=== PATIENT | male | born 1950 | race American Indian/Alaskan Native ===

== ENCOUNTER 2016-06-02 11:54 | Emergency (ER) | payer MEDICARE ==
[2016-06-02 12:03] VITALS: BP 154/99
[2016-06-02] MEDS ORDERED: NORCO 5/325 PO ONE (14:03)
[2016-06-02 14:47] LABS: Basophils % (Auto) 0.8 % (0.0-1.8); Hematocrit 43.3 % (35.5-45.6); Hemoglobin 14.5 gm/dl (11.8-15.2); Mean Corpuscular HGB Conc 33 % (32-34); Mean Corpuscular Hemoglobin 30 pg (28-32); Mean Corpuscular Volume 91 fl (84-94); Platelet Count 211 K/mm3 (140-440); Red Blood Count 4.77 M/mm3 (3.65-5.03); Red Cell Distribution Width 13.6 % (13.2-15.2); White Blood Count 9.7 K/mm3 (4.5-11.0)
[2016-06-02 14:53] LABS: Anion Gap 19 mmol/L; BUN/Creatinine Ratio 10.83; Blood Urea Nitrogen 13 mg/dL (9-20); Calcium 9.6 mg/dL (8.4-10.2); Carbon Dioxide 26 mmol/L (22-30); Chloride 101.8 mmol/L (98-107); Glucose 105 mg/dL (75-100); Potassium 4.4 mmol/L (3.6-5.0); Sodium 142 mmol/L (137-145)
--- NOTE | 2016-06-02 14:53 | XRay Report ---
Right hand 3 views: History: Swelling of hand, pain. Gout. Findings: No definite articular abnormality. No definite bony erosion. No periosteal reaction or soft tissue calcification. There is suspicion of a cystic area noted at the middle phalanx of third finger right hand probably related to old injury. There is periosteal thickening noted in the region. Impression: Findings as detailed above. Clinical correlation is advised.
--- NOTE | 2016-06-02 14:55 | XRay Report ---
Right wrist 3 views: History: Pain. Findings: There appears to be arthritic changes at the scaphocapitate joint. The area is not optimally visualized. The radio carpal joint appears unremarkable. No definite evidence of acute fracture or soft tissue calcification. Impression: Findings as detailed above.
[2016-06-02 14:56] LABS: C-Reactive Protein 0.4 mg/dL (0.00-1.30); Uric Acid 6.6 mg/dL (3.5-7.6)
[2016-06-02 15:10] LABS: Erythrocyte Sedimentation Rate 7 mm/Hr (0-20)
[2016-06-02] MEDS ORDERED: MOTRIN PO ONE (15:24)
--- NOTE | 2016-06-02 16:25 | Emergency Department Report ---
Upper Extremity - HPI Chief Complaint: Extremity Injury, Upper Stated Complaint: RT HAND NUMBNESS/PAIN/SWELLING Time Seen by Provider: 06/02/16 13:58 Upper Extremity: Right Hand Occurred When: 1 Day Symptoms: Yes Pain with Movement, Yes Swelling, No Deformity, No Limited Range of Movement, No Numbness, No Weakness, No Bruising/Ecchymosis ED Review of Systems ROS: Stated complaint: RT HAND NUMBNESS/PAIN/SWELLING Other details as noted in HPI Constitutional: denies: chills, fever Eyes: denies: eye pain, eye discharge, vision change ENT: denies: ear pain, throat pain Respiratory: denies: cough, shortness of breath, wheezing Cardiovascular: denies: chest pain, palpitations Endocrine: no symptoms reported Gastrointestinal: denies: abdominal pain, nausea, diarrhea Genitourinary: denies: urgency, dysuria Musculoskeletal: as per HPI. denies: back pain, joint swelling, arthralgia Skin: denies: rash, lesions Neurological: denies: headache, weakness, paresthesias Psychiatric: denies: anxiety, depression Hematological/Lymphatic: denies: easy bleeding, easy bruising ED Past Medical Hx - Past Medical History Hx Hypertension: Yes Hx Congestive Heart Failure: No Hx Diabetes: No Hx Asthma: No Hx COPD: No Additional medical history: SLEEP APNEA,PROSTATE CA-remission. NEUROPATHY - Surgical History Additional Surgical History: TONSILLECTOMY. PROSTATE REMOVED - Social History Smoking Status: Never Smoker Substance Use Type: Alcohol - Medications Home Medications: Home Medications Medication Instructions Recorded Confirmed Last Taken Type Colchicine [Colcrys] 0.6 mg PO DAILY #13 tablet 01/07/15 01/01/16 Unknown Rx HYDROcodone/APAP 5-325 [[place] 1 each PO Q6HR PRN #16 tablet 01/07/15 01/01/16 Unknown Rx 5-325 mg TAB] Indomethacin Sr (Nf) [Indocin Sr 75 mg PO Q12HR #30 capsule.er 01/07/15 Unknown Rx (Nf)] Prednisone [predniSONE 10 mg 10 mg PO .TAPER #1 tab.ds.pk 01/07/15 01/01/16 Unknown Rx (6-Day Pack, 21 Tabs)] amLODIPine [Norvasc] 10 mg PO DAILY 30 Days 01/03/16 Unknown Rx HYDROcodone/APAP 5-325 [[place] 1 each PO Q6HR PRN #5 tablet 06/02/16 Unknown Rx 5/325] Naproxen [Naprosyn TAB] 500 mg PO BID PRN #20 tablet 06/02/16 Unknown Rx Upper Extremity Exam - Exam General: Vital signs noted. No distress. Alert and acting appropriately. Head and Torso: No HEENT Abnormality, No Neck Tenderness, No Chest/Lungs Abnormality, No Abdominal Tenderness, No Back Tenderness Shoulder Exam: Yes Normal Range of Motion in Shoulder, No Shoulder Tenderness, No Clavicle Tenderness, No Shoulder Deformity, No AC Joint Tenderness Arm Exam: No Arm/Humerus Tenderness, No Arm Deformity Elbow: No Elbow Tenderness, No Normal Range of Motion in Elbow, No Elbow Deformity Forearm: No Forearm Tenderness, No Forearm Deformity, No Pain with Pronation, No Pain with Supination Wrist: Yes Normal ROM in Wrist, No Wrist Tenderness, No Wrist Deformity, No Snuffbox Tenderness, No Pain with Axial Thumb Compression Hand: Yes Hand Tenderness (minor tenderness on palpation middle of the hand), Yes Normal ROM in Digit(s), No Hand Deformity, No Digit Tenderness, No Digit(s) Deformity, No Tendon Dysfunction CMS Exam: No Broken Skin, No Normal Distal Pulses (distal radial pulse ulnar pulse intact), No Normal Capillary Refill, No Normal Distal Sensation ED Course Vital Signs 06/02/16 12:00 Temperature 98.3 F Pulse Rate 100 H Respiratory 20 Rate Blood Pressure 154/99 O2 Sat by Pulse 100 Oximetry ED Medical Decision Making - Lab Data Result diagrams: 06/02/16 14:17 06/02/16 14:17 - Medical Decision Making A/P: Musculoskeletal hand pain 1-labs within normal limits, no outstanding abnormality on x-ray. I discussed case with Dr. Reese as per Dr. Reese no signs of clinical infection and hand distal pulses intact capillary refill intact sensation and intact finger and hand and wrist range of motion intact. 2-naproxen when necessary for pain. norco PRN short course 3-follow up with primary care and orthopedics Critical care attestation.: If time is entered above; I have spent that time in minutes in the direct care of this critically ill patient, excluding procedure time. ED Disposition Clinical Impression: Hand pain, right Disposition: DISCHARGED TO HOME OR SELFCARE Is pt being admited?: No Does the pt Need Aspirin: No Condition: Stable Instructions: Musculoskeletal Pain (ED) Prescriptions: Naproxen [Naprosyn TAB] 500 mg PO BID PRN #20 tablet PRN Reason: Pain HYDROcodone/APAP 5-325 [[place] 5/325] 1 each PO Q6HR PRN #5 tablet PRN Reason: Pain Referrals: RENNY BENITEZ MD [Primary Care Provider] - 3-5 Days CLAUDIO CRAWLEY MD [Staff Physician] - 3-5 Days NATHAN COLIN MD [Staff Physician] - 3-5 Days Forms: Work/School Release Form(ED) Time of Disposition: 16:24
== END 2016-06-02 16:31 | disposition home or self-care (01) ==
LOC: ED 11:54
DX: M79.641 Pain in right hand (principal); R20.0 Anesthesia of skin; I10 Essential (primary) hypertension
CPT/HCPCS: 36415; 80048; 84550; 85025; 85652; 86140

== ENCOUNTER 2017-08-19 06:51 | Emergency (ER) | payer MEDICARE ==
[2017-08-19 06:59] VITALS: BP 144/105
[2017-08-19] MEDS ORDERED: MOTRIN PO ONE (07:00)
--- NOTE | 2017-08-19 07:44 | XRay Report ---
FINAL REPORT EXAM: XR HAND 3+V RT HISTORY: right hand pain TECHNIQUE: Three views of the right hand were obtained. FINDINGS: There is no evidence of fracture or soft tissue injury. In the wrist there is fusion at the level of the lunate and capitate bones. There calcification of the triangular fibrocartilage. The soft tissues otherwise unremarkable. IMPRESSION: No acute injury. Fusion of the level of the lunate and capitate bones. Calcification of the triangular fibrocartilage.
[2017-08-19] MEDS ORDERED: DECADRON IM ONE (08:15)
--- NOTE | 2017-08-19 08:22 | Emergency Department Report ---
ED Upper Extremity Inj HPI - General Chief Complaint: Extremity Injury, Upper Stated Complaint: RIGHT HAND PAIN Time Seen by Provider: 08/19/17 07:59 Source: patient Mode of arrival: Ambulatory Limitations: No Limitations - History of Present Illness Initial Comments: This is a 67-year-old male nontoxic, well nourished in appearance, no acute signs of distress presents to the ED with c/o of right hand pain and swelling x1 day. Patient stated he wake up this morning with this. Patient denies any trauma or recalling and trauma. Patient denies any joint swelling or redness. Denies decreased range of motion but stated there is slight pain with range of motion. Patient denies any numbness, tingling, fever, chills, nausea, vomiting , headache or stiff neck. Patient denies any allergies or significant past medical history. MD Complaint: Injury to:: right, hand -: This morning Other Extremity Injury: Hand: Right Other Injuries: none Place: home Severity scale (0 -10): 8 Improves With: immobilization Worsens With: movement of extremity Associated Symptoms: denies other symptoms. denies: weakness, numbness, neck pain, suspects foreign body, nausea/vomiting, heard/felt popping sensat - Related Data Previous Rx's Medication Instructions Recorded Last Taken Type Colchicine [Colcrys] 0.6 mg PO DAILY #13 tablet 01/07/15 Unknown Rx HYDROcodone/APAP 5-325 [[place] 1 each PO Q6HR PRN #16 tablet 01/07/15 Unknown Rx 5-325 mg TAB] Indomethacin Sr (Nf) [Indocin Sr 75 mg PO Q12HR #30 capsule.er 01/07/15 Unknown Rx (Nf)] Prednisone [predniSONE 10 mg 10 mg PO .TAPER #1 tab.ds.pk 01/07/15 Unknown Rx (6-Day Pack, 21 Tabs)] amLODIPine [Norvasc] 10 mg PO DAILY 30 Days tablet 01/03/16 Unknown Rx HYDROcodone/APAP 5-325 [[place] 1 each PO Q6HR PRN #5 tablet 06/02/16 Unknown Rx 5/325] Naproxen [Naprosyn TAB] 500 mg PO BID PRN #20 tablet 06/02/16 Unknown Rx Ibuprofen [Motrin] 600 mg PO Q8H PRN #30 tablet 08/19/17 Unknown Rx Prednisone [predniSONE 10 mg 10 mg PO .TAPER #1 tab.ds.pk 08/19/17 Unknown Rx (6-Day Pack, 21 Tabs)] Allergies Allergy/AdvReac Type Severity Reaction Status Date / Time No Known Allergies Allergy Unverified 01/07/15 07:39 ED Review of Systems ROS: Stated complaint: RIGHT HAND PAIN Other details as noted in HPI Constitutional: denies: chills, fever Eyes: denies: eye pain, eye discharge, vision change ENT: denies: ear pain, throat pain Respiratory: denies: cough, shortness of breath, wheezing Cardiovascular: denies: chest pain, palpitations Endocrine: no symptoms reported Gastrointestinal: denies: abdominal pain, nausea, diarrhea Genitourinary: denies: urgency, dysuria Musculoskeletal: arthralgia. denies: back pain, joint swelling Skin: denies: rash, lesions Neurological: denies: headache, weakness, paresthesias Psychiatric: denies: anxiety, depression Hematological/Lymphatic: denies: easy bleeding, easy bruising ED Past Medical Hx - Past Medical History Hx Hypertension: Yes Hx Congestive Heart Failure: No Hx Diabetes: No Hx of Cancer: Yes (prostate) Hx Asthma: No Hx COPD: No Additional medical history: SLEEP APNEA,PROSTATE CA-remission. NEUROPATHY - Surgical History Additional Surgical History: TONSILLECTOMY. PROSTATE REMOVED - Social History Smoking Status: Never Smoker Substance Use Type: None - Medications Home Medications: Home Medications Medication Instructions Recorded Confirmed Last Taken Type Colchicine [Colcrys] 0.6 mg PO DAILY #13 tablet 01/07/15 01/01/16 Unknown Rx HYDROcodone/APAP 5-325 [[place] 1 each PO Q6HR PRN #16 tablet 01/07/15 01/01/16 Unknown Rx 5-325 mg TAB] Indomethacin Sr (Nf) [Indocin Sr 75 mg PO Q12HR #30 capsule.er 01/07/15 Unknown Rx (Nf)] Prednisone [predniSONE 10 mg 10 mg PO .TAPER #1 tab.ds.pk 01/07/15 01/01/16 Unknown Rx (6-Day Pack, 21 Tabs)] amLODIPine [Norvasc] 10 mg PO DAILY 30 Days tablet 01/03/16 Unknown Rx HYDROcodone/APAP 5-325 [[place] 1 each PO Q6HR PRN #5 tablet 01/27/17 Unknown Rx 5/325] Naproxen [Naprosyn TAB] 500 mg PO BID PRN #20 tablet 06/02/16 Unknown Rx Ibuprofen [Motrin] 600 mg PO Q8H PRN #30 tablet 08/19/17 Unknown Rx Prednisone [predniSONE 10 mg 10 mg PO .TAPER #1 tab.ds.pk 08/19/17 Unknown Rx (6-Day Pack, 21 Tabs)] ED Physical Exam - General Limitations: No Limitations General appearance: alert, in no apparent distress - Head Head exam: Present: atraumatic, normocephalic - Eye Eye exam: Present: normal appearance Pupils: Present: normal accommodation - ENT ENT exam: Present: normal exam, mucous membranes moist - Neck Neck exam: Present: normal inspection, full ROM. Absent: tenderness, meningismus - Respiratory Respiratory exam: Present: normal lung sounds bilaterally. Absent: respiratory distress, wheezes, rales, rhonchi, stridor - Cardiovascular Cardiovascular Exam: Present: regular rate, normal rhythm, normal heart sounds. Absent: irregular rhythm, systolic murmur, diastolic murmur, rubs, gallop - GI/Abdominal GI/Abdominal exam: Present: soft, normal bowel sounds - Rectal Rectal exam: Present: deferred - Extremities Exam Extremities exam: Present: normal inspection, full ROM, tenderness, normal capillary refill. Absent: joint swelling - Expanded Upper Extremity Exam Right General: Present: normal inspection Shoulder Exam: Present: normal inspection, full ROM Upper Arm exam: Present: normal inspection, full ROM Elbow exam: Present: normal inspection, full ROM Forearm Wrist exam: Present: normal inspection, full ROM Hand Wrist exam: Present: normal inspection, full ROM, tenderness. Absent: swelling, abrasion, laceration, ecchymosis, deformity, crepidus, dislocation, erythema, amputation, nail avulsion, subungual hematoma Hand L/R Back: 1 - pain Neuro motor exam: Present: wrist extension intact, thumb opposition intact, thumb IP flexion intact, thumb adduction intact, fingers 2-5 abduction intact Neurosensory exam: Present: 2-point discrimination, radial nerve intact, ulnar nerve intact, median nerve intact Vascular: Present: vascular compromise, normal capillary refill, radial pulse, brachial pulse, ulnar pulse - Back Exam Back exam: Present: normal inspection, full ROM - Neurological Exam Neurological exam: Present: alert, oriented X3, normal gait - Psychiatric Psychiatric exam: Present: normal affect, normal mood - Skin Skin exam: Present: warm, dry, intact, normal color. Absent: rash ED Course Vital Signs 08/19/17 06:56 Temperature 98.3 F Pulse Rate 99 H Respiratory 16 Rate Blood Pressure 144/105 O2 Sat by Pulse 99 Oximetry - Reevaluation(s) Reevaluation #1: 08/19/17 08:38 Patient is speaking in full sentences with no signs of distress noted. ED Medical Decision Making - Medical Decision Making This is a 67-year-old male that presents with right hand strain. Patient afebrile was examined by me. There is no signs of any cellulitis or abscess formation. There is normal range of motion. Area is not warm to touch. X-ray has been obtained and dictated by the radiologist. Patient notified of the x- ray report with normal by the patient. Patient received 10 mg IM Decadron and Motrin. Patient is discharged with prednisone Dosepak and Motrin for pain. Patient denies history of any GI abnormalities. Patient did receive a Velcro hand splint for pain comfort and patient was instructed to rice therapy. Patient was referred to Follow-up with a orthopedic doctor in 3-5 days or if symptoms worsen and continue return to emergency room as soon as possible. At time of discharge, the patient does not seem toxic or ill in appearance. No acute signs of distress noted. Patient agrees to discharge treatment plan of care. No further questions noted by the patient. Critical care attestation.: If time is entered above; I have spent that time in minutes in the direct care of this critically ill patient, excluding procedure time. ED Disposition Clinical Impression: Strain of right hand Qualifiers: Encounter type: initial encounter Qualified Code(s): S66.911A - Strain of unspecified muscle, fascia and tendon at wrist and hand level, right hand, initial encounter Disposition: - TO HOME OR SELFCARE Is pt being admited?: No Does the pt Need Aspirin: No Condition: Stable Instructions: RICE Therapy (ED) Additional Instructions: Follow-up with a orthopedic doctor in 3-5 days or if symptoms worsen and continue return to emergency room as soon as possible. Prescriptions: Ibuprofen [Motrin] 600 mg PO Q8H PRN #30 tablet PRN Reason: Pain Prednisone [predniSONE 10 mg (6-Day Pack, 21 Tabs)] 10 mg PO .TAPER #1 tab.ds.pk Referrals: PRIMARY CARE, [Primary Care Provider] - 3-5 Days BRENT HERNANDEZ MD [Staff Physician] - 3-5 Days [facility] [Outside] - 3-5 Days [facility] [Outside] - 3-5 Days Forms: Work/School Release Form(ED)
== END 2017-08-19 08:51 | disposition home or self-care (01) ==
LOC: ED 06:51
DX: S66.911A Strain of unspecified muscle, fascia and tendon at wrist and hand level, right hand, initial encounter (principal); I10 Essential (primary) hypertension; G62.9 Polyneuropathy, unspecified; X58.XXXA Exposure to other specified factors, initial encounter; Y93.89 Activity, other specified; Y92.89 Other specified places as the place of occurrence of the external cause; Y99.8 Other external cause status
CPT/HCPCS: 29125; 73130; 96372; 99283; J1100

== ENCOUNTER 2020-12-01 02:52 | Emergency (ER) | payer MEDICARE ==
[2020-12-01 04:53] LABS: Basophils # (Auto) 0.1 K/mm3 (0.0-0.1); Basophils % (Auto) 1.2 % (0.0-1.8); Eosinophils # (Auto) 0.2 K/mm3 (0.0-0.4); Eosinophils % (Auto) 2.5 % (0.0-4.3); Hematocrit 41.6 % (35.5-45.6); Hemoglobin 14.3 gm/dl (11.8-15.2); Lymphocytes # (Auto) 1.3 K/mm3 (1.2-5.4); Lymphocytes % (Auto) 19.7 % (13.4-35.0); Mean Corpuscular HGB Conc 34 % (32-34); Mean Corpuscular Volume 93 fl (84-94); Monocytes # (Auto) 0.4 K/mm3 (0.0-0.8); Monocytes % (Auto) 6.5 % (0.0-7.3); Platelet Count 204 K/mm3 (140-440); Red Blood Count 4.45 M/mm3 (3.65-5.03); Red Cell Distribution Width 13.9 % (13.2-15.2)
[2020-12-01 05:11] LABS: BUN/Creatinine Ratio 14; Blood Urea Nitrogen 18 mg/dL (9-20); Calcium 9.6 mg/dL (8.4-10.2); Hemolysis Index 17
[2020-12-01 09:14] LABS: Color,Urine Red (Yellow); RBC,Urine > 182.0 /HPF (0.0-6.0)
[2020-12-01 09:15] LABS: Blood,Urine TNR (Negative); PH,Urine TNR (5.0-7.0); Protein,Urine TNR mg/dL (Negative); Urobilinogen,Urine TNR mg/dL (<2.0)
[2020-12-01 09:45] LABS: Ictotest,Urine TNR (Negative)
[2020-12-01] MEDS ORDERED: MORPHINE 2 MG/1 ML INJ IV ONE (09:48)
[2020-12-01] MEDS ORDERED: SODIUM CHLORIDE 0.9% 1000 ML 3,000 ML IV ONE (10:24)
[2020-12-01] MEDS ORDERED: SODIUM CHLORIDE 0.9% 1000 ML 1,000 ML ONE ×3 (10:24→11:23)
--- NOTE | 2020-12-01 11:48 | Emergency Department Report ---
ED Male HPI - General Chief complaint: Urogenital-Male Stated complaint: BLEEDING BLADDER Time Seen by Provider: 12/01/20 08:10 Source: patient Mode of arrival: Ambulatory Limitations: No Limitations - History of Present Illness Initial comments: 70-year-old male, history of prostate cancer, status post prostatectomy, chemotherapy, and radiation therapy, presents to ED with hematuria. Patient has an indwelling [place]. He states blood in his urine yesterday afternoon. He denies any trouble with urine draining from [place]. He denies fever or abdominal pain. Patient states ever since having radiation, he has had intermittent episodes of months of hematuria. Patient states he did not contact his urologist prior to ED arrival. Complaint: other (Hematuria) -: days(s) (1) Severity: moderate Quality: other (Painless) Consistency: constant Improves with: none Worsens with: none blood in urine. denies: urinary retention, fever, nausea/vomiting - Related Data Home Medications Medication Instructions Recorded Confirmed Last Taken Latanoprost 0.005% 1 drop OU DAILY 10/30/19 10/30/19 10/29/19 Previous Rx's Medication Instructions Recorded Last Taken Type amLODIPine 10 mg PO DAILY 30 Days tablet 01/03/16 10/30/19 Rx levoFLOXacin [Levaquin] 750 mg PO QDAY #5 tablet 11/02/19 Unknown Rx Sulfamethoxazole/Trimethoprim 1 each PO BID 5 Days #10 tablet 12/01/20 Unknown Rx [Bactrim DS TAB] Allergies Allergy/AdvReac Type Severity Reaction Status Date / Time No Known Allergies Allergy Verified 10/30/19 17:45 ED Review of Systems ROS: Stated complaint: BLEEDING BLATTER Other details as noted in HPI Comment: All other systems reviewed and negative Constitutional: denies: fever Gastrointestinal: denies: abdominal pain Genitourinary: hematuria ED Past Medical Hx - Past Medical History Hx Hypertension: Yes Hx Heart Attack/AMI: No Hx Congestive Heart Failure: No Hx Diabetes: No Hx Pulmonary Embolism: No Hx Renal Disease: No Hx Arthritis: No Hx Kidney Stones: Yes Hx Asthma: No Hx COPD: No Hx Tuberculosis: No Hx HIV: No Additional medical history: SLEEP APNEA,PROSTATE CA-remission. NEUROPATHY - Surgical History Hx Coronary Stent: No Hx Pacemaker: No Hx Internal Defibrillator: No Additional Surgical History: TONSILLECTOMY. PROSTATE REMOVED - Social History Smoking Status: Never Smoker Substance Use Type: None - Medications Home Medications: Home Medications Medication Instructions Recorded Confirmed Last Taken Type amLODIPine 10 mg PO DAILY 30 Days tablet 01/03/16 10/30/19 10/30/19 Rx Latanoprost 0.005% 1 drop OU DAILY 10/30/19 10/30/19 10/29/19 History levoFLOXacin [Levaquin] 750 mg PO QDAY #5 tablet 11/02/19 Unknown Rx Sulfamethoxazole/Trimethoprim 1 each PO BID 5 Days #10 tablet 12/01/20 Unknown Rx [Bactrim DS TAB] ED Physical Exam - General Limitations: No Limitations General appearance: alert, in no apparent distress - Head Head exam: Present: atraumatic, normocephalic - Eye Eye exam: Present: normal appearance, EOMI - ENT ENT exam: Present: mucous membranes moist - Neck Neck exam: Present: normal inspection - Respiratory Respiratory exam: Present: normal lung sounds bilaterally. Absent: respiratory distress - Cardiovascular Cardiovascular Exam: Present: regular rate, normal rhythm - GI/Abdominal GI/Abdominal exam: Present: soft. Absent: distended, tenderness - exam: Present: other (Bloody urine present in [place] bag) - Extremities Exam Extremities exam: Present: normal inspection - Neurological Exam Neurological exam: Present: alert, oriented X3 - Psychiatric Psychiatric exam: Present: normal affect, normal mood - Skin Skin exam: Present: warm, dry, intact, normal color ED Course Vital Signs 12/01/20 12/01/20 12/01/20 04:23 08:01 08:16 Temperature 98.2 F Pulse Rate 75 66 74 Respiratory 19 11 L 20 Rate Blood Pressure 125/89 141/100 Blood Pressure [Left] O2 Sat by Pulse 98 94 Oximetry 12/01/20 12/01/20 12/01/20 08:17 09:00 09:30 Temperature Pulse Rate 75 72 Respiratory 18 13 13 Rate Blood Pressure 127/74 127/74 Blood Pressure [Left] O2 Sat by Pulse 98 100 97 Oximetry 12/01/20 12/01/20 12/01/20 09:57 10:00 10:05 Temperature 98.2 F Pulse Rate 92 H 105 H Respiratory 20 15 18 Rate Blood Pressure 144/89 144/86 Blood Pressure [Left] O2 Sat by Pulse 98 98 Oximetry 12/01/20 12/01/20 12/01/20 10:16 10:46 11:30 Temperature Pulse Rate 84 63 82 Respiratory 14 13 14 Rate Blood Pressure 127/74 144/89 140/92 Blood Pressure [Left] O2 Sat by Pulse 98 100 97 Oximetry 12/01/20 12/01/20 12:00 12:30 Temperature 98.7 F Pulse Rate 74 89 Respiratory 13 16 Rate Blood Pressure 134/112 Blood Pressure 134/98 [Left] O2 Sat by Pulse 96 98 Oximetry ED Medical Decision Making - Lab Data Result diagrams: 12/01/20 04:29 12/01/20 04:29 - Medical Decision Making 70-year-old male presents to ED with hematuria. Patient reports previous episodes of this. He has history of prostate cancer and is status post prostatectomy, chemotherapy, and radiation treatment. He has [place] catheter in place. Vital signs stable. Hemoglobin normal. Bladder was irrigated to clear clots. Patient placed on antibiotics for possible UTI. He is advised to follow-up with his urologist. Return precautions given. - Differential Diagnosis Malignancy, UTI, anemia Critical care attestation.: If time is entered above; I have spent that time in minutes in the direct care of this critically ill patient, excluding procedure time. ED Disposition Clinical Impression: Hematuria Disposition: DC-01 TO HOME OR SELFCARE Is pt being admited?: No Condition: Stable Instructions: Hematuria, Adult Prescriptions: Sulfamethoxazole/Trimethoprim [Bactrim DS TAB] 1 each PO BID 5 Days #10 tablet Referrals: PRIMARY CAREMD [Primary Care Provider] - GILBERT PIMENTEL MD [Staff Physician] - CHERI Time of Disposition: 11:48
[2020-12-01 12:31] VITALS: BP 134/98
== END 2020-12-01 12:33 | disposition home or self-care (01) ==
LOC: ED 02:52
DX: R31.9 Hematuria, unspecified (principal); I10 Essential (primary) hypertension; Z87.442 Personal history of urinary calculi; Z98.890 Other specified postprocedural states
CPT/HCPCS: 36415; 51700; 80048; 81001; 85025; 96361; 96374; 99283; J2270; J7030